=== PATIENT | female | born 1980 | race Caucasian/White ===

== ENCOUNTER 2016-05-03 00:58 | Inpatient (IN) | payer BC ==
[2016-05-03 01:18] VITALS: BMI 29.5
[2016-05-03] MEDS ORDERED: TERBUTALINE 1 MG/ML VIAL SQ PRN (01:18)
[2016-05-03] MEDS ORDERED: OXYTOCIN 10 UNIT/ML 1 ML VIAL IM PRN (01:18)
[2016-05-03] MEDS ORDERED: CARBOPROST TROMETHAMINE 250 MCG/ML 1 ML AMP IM PRN (01:18)
[2016-05-03] MEDS ORDERED: METHYLERGONOVINE 0.2 MG/ML 1 ML AMP IM PRN (01:18)
[2016-05-03] MEDS ORDERED: LIDOCAINE 1% (PF) 10 MG/ML (30 ML SDV) SQ PRN (01:18)
[2016-05-03] MEDS: LACTATED RINGERS 1,000 ML IV SCH ×2 (01:27→02:30)
[2016-05-03 01:34] LABS: Basophils % (A) 0 %; CH 26.1; CHCM 32.8; Eosinophils # (A) 0.1 k/uL (0-0.7); Eosinophils % (A) 1 %; HCT 37.5 % (34.0-46.0); HDW 3.65; Hypochromasia Slight; Luc % (Auto) 1; Lymphocytes # (A) 1.4 k/uL (1.0-4.8); Lymphocytes % (A) 9 %; MCH 25.6 pg (25.0-35.0); MCHC 32.1 g/dL (31.0-37.0); MCV 79.7 fL (80.0-100.0); Mean Platelet Volume 7.3; Monocytes # (A) 0.6 k/uL (0-1.0); Monocytes % (A) 4 %; Neutrophils # (A) 12.9 k/uL (1.3-7.7); Neutrophils % (A) 85 %; Poikilocytosis Slight; RBC 4.71 m/uL (3.80-5.40); RDW 14.1 % (11.5-15.5); WBC 15.2 k/uL (3.8-10.6); WBC (Perox) 15.67
[2016-05-03] MEDS ORDERED: BUPIVACAINE (PF) 0.25% 30 ML VIAL ONE (02:02)
[2016-05-03] MEDS ORDERED: fentaNYL (PF) 50 MCG/ML 5 ML AMP ONE (02:02)
[2016-05-03] MEDS ORDERED: SODIUM CHLORIDE 0.9% 100 ML BAG ONE (02:02)
--- NOTE | 2016-05-03 02:29 | P.HPOB ---
History of Present Illness H&P Date: 05/03/16 Chief Complaint: Strong regular uterine contractions This is a 36-year-old white female 2 para 1001 EDC 05/10/2016 at 39 weeks gestation. Patient presents this morning with strong regular uterine contractions. She denies vaginal bleeding. Fetus is been active throughout the . She reports a small amount of fluid this morning at 10:30 with no further leaking to follow. She has no lesions or prodrome of HSV. Past medical history significant for herpes simplex virus, no lesions or breakouts at this time. Past surgical history is negative. Current medications Zovirax daily, vitamin daily, Zofran when necessary. ALLERGIES include no known medical ALLERGIES. Family history is essentially unremarkable. Social history patient is a former tobacco smoker, none with the . Previous marijuana user, none with the . She denies alcohol or other drug use. She is . On exam this is a pleasant white female, 5 foot 8 inches, 194 pounds, vital signs are stable and she is afebrile. General physical exam is within normal limits. Cervix is 8 cm dilated, 80% effaced, -2 station, vertex presentation. Artificial amniorrhexis reveals clear mucoid type fluid. heart rate is in the 150s with frequent accelerations, reactive NST. Impression: 39 week intrauterine , active spontaneous labor, advanced maternal age, history of HSV with no lesions or prodrome, on daily prophylaxis. Plan: Close maternal and surveillance. Epidural has been placed per her request. Anticipate normal spontaneous vaginal delivery. Review of Systems Negative except as in HPI Past Medical History Past Medical History: No Reported History Additional Past Medical History / Comment(s): History of herpes simplex virus History of Any Multi-Drug Resistant Organisms: None Reported Past Surgical History: No Surgical Hx Reported Past Psychological History: No Psychological Hx Reported Smoking Status: Former smoker Past Alcohol Use History: None Reported Past Drug Use History: None Reported - Past Family History Mother Family Medical History: No Reported History Medications and Allergies Home Medications Medication Instructions Recorded Confirmed Type Docusate [Colace] 100 mg PO DAILY PRN 10/31/15 10/31/15 History Ondansetron Odt [Zofran Odt] 4 mg PO Q8HR PRN 10/31/15 10/31/15 History Pnv with Ca,No.72/Iron/FA 1 tab PO DAILY 10/31/15 10/31/15 History [ Plus Tablet] Allergies Allergy/AdvReac Type Severity Reaction Status Date / Time No Known Allergies Allergy Verified 10/31/15 10:10 Exam - Vital Signs Vital signs: Vital Signs Temp Pulse Resp BP 05/03/16 01:13 97.8 F 90 18 143/83 Intake and Output 05/02/16 05/02/16 05/03/16 14:59 22:59 06:59 Other: Weight 87.997 kg Patient Weight 05/03/16 06:59 Weight 87.997 kg See dictation, please Results Result Diagrams: 05/03/16 01:28 Abnormal Lab Results - Last 24 Hours (Table) 05/03/16 Range/Units 01:28 WBC 15.2 H (3.8-10.6) k/uL MCV 79.7 L (80.0-100.0) fL Neutrophils # 12.9 H (1.3-7.7) k/uL Assessment and Plan Plan: Close maternal and surveillance. Anticipate normal spontaneous vaginal delivery. Time with Patient: Less than 30
[2016-05-03] MEDS: OXYTOCIN 30 UNITS/500 ML NS 30 UNIT in SALINE 1 500ML.BAG IV SCH ×2 (04:00→06:26)
[2016-05-03] MEDS ORDERED: diphenhydrAMINE 25 MG CAP PO PRN (04:55)
[2016-05-03] MEDS ORDERED: LANOLIN CREAM 5 GM TUBE TOPICAL PRN (04:55)
[2016-05-03] MEDS ORDERED: ACETAMINOPHEN TAB 325 MG TAB PO PRN (04:55)
[2016-05-03] MEDS ORDERED: diphenhydrAMINE 50 MG CAP PO PRN (04:55)
[2016-05-03] MEDS ORDERED: diphenhydrAMINE 50 MG/ML 1 ML VIAL IVP PRN ×2 (04:55)
[2016-05-03] MEDS ORDERED: Acetaminophen-Codeine 300-30mg TAB PO PRN (04:55)
[2016-05-03] MEDS ORDERED: WITCH HAZEL 1 EACH MED..PAD TOPICAL PRN (04:55)
[2016-05-03] MEDS ORDERED: ZOLPIDEM 5 MG TAB PO PRN (04:55)
[2016-05-03] MEDS ORDERED: BENZOCAINE/MENTHOL SPRAY 1 GM/SPRAY AEROSOL TOPICAL PRN (04:55)
[2016-05-03] MEDS ORDERED: HYDROCORTISONE 2.5% RECTAL CREAM 30 GM TUBE RECTAL PRN (04:55)
[2016-05-03] MEDS ORDERED: SIMETHICONE 80 MG CHEWABLE PO PRN (04:55)
--- NOTE | 2016-05-03 04:56 | P.PROBDLV ---
Vaginal Delivery Note - . Vaginal Delivery Note: This is a 36-year-old female 2 para 1001 EDC 05/10/2016 at 39 weeks gestation. Patient presented with strong regular contractions at home, judged to be in active spontaneous labor. is unremarkable, group B strep cultures negative, blood type A positive. Please see dictated history and physical for details. Patient was admitted, artificial amniorrhexis revealed mucoid clear fluid. heart tones were reassuring throughout the first and second stages of labor. Patient became uncomfortable and requested epidural, this was placed per the anesthesia staff. She progressed through the first stage of labor with the aid of a small amount of oxytocin augmentation. She was judged to be completely dilated at 0418 hours. She began the second stage of labor at that time. Patient pushed successfully, the perineal body was prepped and draped in usual fashion. Infant's head delivered occiput anterior and she restituted accordingly. There was no nuchal cord noted. The left or anterior shoulder was delivered from underneath the pubic symphysis at which time the oropharynx, nasopharynx and external nares were bulb suctioned on the perineal body. Patient was officially delivered of a liveborn female at 0435 hours. Umbilical cord was doubly clamped and ligated, she was handed to waiting nurses for evaluation where scores of 9 and 9 at one and 5 minutes respectively were given. The placenta delivered spontaneously, it was inspected and noted to be intact with trivascular cord at 0439 hours. At this time the perineal body was redraped. Inspection of the cervix, vagina, perineum, periurethral, and perirectal areas revealed a small second-degree perineal laceration. This was repaired in the usual fashion using 3-0 Vicryl suture. All sponge needle and instrument counts are correct at the end of the procedure. Estimated blood loss 350 mL's. The patient and her family are allowed to begin the bonding experience in the LDR.
[2016-05-03] MEDS: SENNOSIDES-DOCUSATE SODIUM 1 EACH TAB PO SCH ×2 (08:38→14:25)
[2016-05-03] MEDS ORDERED: BUPIVACAINE (PF) 0.25% 25 ML, fentaNYL (PF) 200 MCG in SODIUM CHLORIDE 0.9% 71 ML EPIDURAL ONE (09:49)
[2016-05-03] MEDS: IBUPROFEN 600 MG TAB PO PRN ×2 (14:26→23:50)
[2016-05-04] MEDS: SENNOSIDES-DOCUSATE SODIUM 1 EACH TAB PO SCH (08:14)
[2016-05-04] MEDS: IBUPROFEN 600 MG TAB PO PRN (08:15)
[2016-05-04 08:39] VITALS: BP 117/68; PULSE 89; RESP 20; TEMP 97.8
--- NOTE | 2016-05-04 09:33 | P.DS ---
Providers Date of admission: 05/03/16 01:10 Expected date of discharge: 05/04/16 Attending physician: Enzo Oseguera Primary care physician: Enzo Oseguera [facility] Course: This is a 36-year-old white female 2 para 1001 EDC 05/10/2016 at 39 weeks gestation. Patient presented from home with strong regular uterine contractions, in active labor. was essentially unremarkable with the exception of a history of herpes lesions, no prodrome or symptoms on admission. [place] strep cultures negative. Rubella status immune. Please see my dictated history and physical for details. Artificial amniorrhexis revealed clear fluid. Oxytocin augmentation was given. An epidural was requested and placed. She went on to deliver a liveborn female with scores of 9 and 9 at one and 5 minutes respectively. weighed 8 lbs. 14 oz. or 4020 g. There was an estimated blood loss recorded at 350 mL, and a small second-degree perineal laceration easily repaired. Please see my dictated delivery note for details. The patient is doing well. She is voiding, ambulating and passing flatus without difficulty. Vital signs are stable and she is afebrile. Fundus is firm and in the midline, symmetric and 18 week size. Extremities are negative for edema. Breasts are not engorged. infant is doing well. Patient is being discharged home therefore in very good condition. She will follow-up in the office in 6 weeks. I have reminded her no intercourse, tampons or douching. She is electing to use [id number] products, ibuprofen, 200 mg pills, 3 every 6 hours as needed for pain. I've asked her to call with any fevers shakes or chills, foul smelling or copious lochia, with the passage of large blood clots, with any pain not alleviated by ibuprofen, or indeed with any concerns. [place] will follow up with geophysical laboratory supervisor as recommended. Patient Condition at Discharge: Good Plan - Discharge Summary Discharge Medication List Docusate [Colace] 100 mg PO DAILY PRN 10/31/15 [History] Metoclopramide [Reglan] 10 mg PO BID PRN #20 tab 10/31/15 [Rx] Ondansetron Odt [Zofran Odt] 4 mg PO Q8HR PRN 10/31/15 [History] Pnv with Ca,No.72/Iron/FA [ Plus Tablet] 1 tab PO DAILY 10/31/15 [ History] Follow up Appointment(s)/Referral(s): Enzo Oseguera MD [Primary Care Provider] - 6 Weeks Discharge Disposition: HOME SELF-CARE
== END 2016-05-04 13:15 | disposition home or self-care (01) | DRG 775 ==
LOC: FBPOP 00:58 → 4FBP 01:10
PROVIDERS: ADMIT Obstetrics & Gynecology; ATTEND Obstetrics & Gynecology
PROC: 10E0XZZ Delivery of Products of Conception, External Approach (ICD-10-PCS; principal; 2016-05-03)
PROC: 0KQM0ZZ Repair Perineum Muscle, Open Approach (ICD-10-PCS; 2016-05-03)
PROC: 00HU33Z Insertion of Infusion Device into Spinal Canal, Percutaneous Approach (ICD-10-PCS; 2016-05-03)
PROC: 3E0R3CZ (ICD-10-PCS; 2016-05-03)
DX: O70.1 Second degree perineal laceration during delivery (principal); Z37.0 Single live birth; Z3A.39 39 weeks gestation of pregnancy; Z86.19 Personal history of other infectious and parasitic diseases; Z87.891 Personal history of nicotine dependence; Z79.899 Other long term (current) drug therapy
CPT/HCPCS: 59025; 85025; 88307; 99213